=== PATIENT | female | born 1990 | race Caucasian/White ===

== ENCOUNTER 2019-07-13 12:48 | Emergency (ER) | payer OTHER ==
[2019-07-13] MEDS ORDERED: Ondansetron ODT TAB* 4 MG PO ONE (13:22)
[2019-07-13] MEDS ORDERED: Ketorolac INJ* 30 MG/ML 1 ML VIAL IM ONE (13:23)
--- NOTE | 2019-07-13 13:24 | ED ---
GI/ HPI - HPI Summary HPI Summary: 29-year-old female presents with nausea and vomiting today. States that she is having abdominal pain in her lower abd. Always has this pain when she has her period. Has not taking anything for her symptoms. She denies any fevers. She states she's been feeling hot and cold. No chest pain or shortness breath. No cough. Some admits to urinary pressure but no dysuria. No abnormal vaginal discharge. Has no medical conditions. she denies any diarrhea constipation. - History of Current Complaint Chief Complaint: EDNauseaVomitDiarrh Time Seen by Provider: 07/13/19 13:13 Stated Complaint: ABD PAIN PER Pain Intensity: 5 - Allergy/Home Medications Allergies/Adverse Reactions: Allergies Allergy/AdvReac Type Severity Reaction Status Date / Time No Known Allergies Allergy Verified 07/13/19 12:54 PMH/Surg Hx/FS Hx/Imm Hx Endocrine/Hematology History: Denies: Hx Anticoagulant Therapy Respiratory History: Denies: Hx Asthma Infectious Disease History: No Infectious Disease History: Denies: Traveled Outside the [place] in Last 30 Days - Family History Known Family History: Positive: Non-Contributory - Social History Alcohol Use: Rare Substance Use Type: Reports: None Smoking Status (MU): Never Smoked Tobacco Review of Systems Negative: Fever Negative: Chest Pain Negative: Shortness Of Breath Positive: Abdominal Pain, Vomiting, Nausea. Negative: Diarrhea All Other Systems Reviewed And Are Negative: Yes Physical Exam Triage Information Reviewed: Yes Vital Signs On Initial Exam: Initial Vitals Temp Pulse Resp BP Pulse Ox 97.3 F 69 16 95/57 100 07/13/19 12:50 07/13/19 12:50 07/13/19 12:50 07/13/19 12:50 07/13/19 12:50 Vital Signs Reviewed: Yes Appearance: Positive: Well-Appearing Skin: Positive: Warm, Dry Head/Face: Positive: Normal Head/Face Inspection Eyes: Positive: Normal, Conjunctiva Clear ENT: Positive: Pharynx normal Respiratory/Lung Sounds: Positive: Clear to Auscultation, Breath Sounds Present Cardiovascular: Positive: Normal, RRR Abdomen Description: Positive: Nontender, Soft Bowel Sounds: Positive: Present Musculoskeletal: Positive: Normal Neurological: Positive: Normal Psychiatric: Positive: Normal Procedures - Sedation Patient Received Moderate/Deep Sedation with Procedure: No Diagnostics - Vital Signs Vital Signs Temp Pulse Resp BP Pulse Ox 07/13/19 12:50 97.3 F 69 16 95/57 100 - Laboratory Result Diagrams: 07/13/19 13:53 07/13/19 13:49 Lab Statement: Any lab studies that have been ordered have been reviewed, and results considered in the medical decision making process. Re-Evaluation - Re-Evaluation First Eval Re-Evaluation Time: 14:45 Change: Improved Comment: feeling better GIGU Course/Dx - Course Course Of Treatment: 29-year-old female presents with nausea and vomiting today. States that she is having abdominal pain in her lower abd. Always has this pain when she has her period. Has not taking anything for her symptoms. She denies any fevers. She states she's been feeling hot and cold. No chest pain or shortness breath. No cough. Some admits to urinary pressure but no dysuria. No abnormal vaginal discharge. Has no medical conditions. she denies any diarrhea constipation. On exam nontender abdomen. urine likely contaminant. wbc 12. crp normal. gave zofran and feeling better. will discharge with zofran could be viral illness vs due to menses. patient understand and agrees with plan. - Diagnoses Differential Diagnoses - Female: Gastroenteritis (Viral), Vomiting, Other - menses Provider Diagnoses: Vomiting, Abdominal pain Discharge ED - Sign-Out/Discharge Documenting (check all that apply): Patient Departure - Discharge Plan Condition: Good Disposition: HOME Prescriptions: Ondansetron ODT TAB* [Zofran 4 MG Odt TAB*] 4 mg PO Q6H PRN #16 tab.odt PRN Reason: Nausea Patient Education Materials: Acute Nausea and Vomiting (ED) Referrals: [facility] – [place] [facility] [Outside] Additional Instructions: Can take Zofran every 6 hours as needed for nausea Take ibuprofen or Tylenol for pain as needed every 6 hours establish care with primary Follow up with primary within 5 days Return to ED if develop any new or worsening symptoms - Billing Disposition and Condition Condition: GOOD Disposition: Home
[2019-07-13 13:58] LABS: Urine Appearance Cloudy; Urine Bacteria Absent (Absent); Urine Bilirubin Negative (Negative); Urine Blood 2+ (Negative); Urine Color Yellow; Urine Glucose Negative (Negative); Urine Ketones Trace (Negative); Urine Nitrite Negative (Negative); Urine Protein 2+(100 mg/dL) (Negative); Urine Red Blood Cell 3+(>10/hpf) (Absent); Urine Specific Gravity 1.027 (1.010-1.030); Urine Squamous Epithelial Cell Present (Absent); Urine Urobilinogen Negative (Negative); Urine White Blood Cell Trace(0-5/hpf) (Absent)
[2019-07-13 14:07] LABS: ABS Eosinophils 0.1 10^3/ul (0-0.6); ABS Lymphocytes 0.5 10^3/ul (1.0-4.8); ABS Monocytes 0.6 10^3/ul (0-0.8); ABS Neutrophils 11.2 10^3/ul (1.5-7.7); Eosinophil % 0.4 %; Hematocrit 41 % (35-47); Hemoglobin 14.1 g/dL (12.0-16.0); Lymphocyte % 4.4 %; Mean Corpuscular HGB Conc 35 g/dL (31-36); Mean Corpuscular Hemoglobin 30 pg (27-31); Mean Corpuscular Volume 87 fL (80-97); Platelet Count 209 10^3/uL (150-450); Red Blood Count 4.68 10^6 /uL (3.70-4.87); Red Cell Distribution Width 13 % (10-15); White Blood Count 12.4 10^3/uL (3.5-10.8)
[2019-07-13 14:21] LABS: ALT 12 U/L (7-52); AST 15 U/L (13-39); Albumin 4.5 g/dL (3.2-5.2); Albumin/Globulin Ratio 1.7 (1-3); Alkaline Phosphatase 29 U/L (34-104); Anion Gap 6 mmol/L (2-11); BUN/Creatinine Ratio 26.5 (8-20); Blood Urea Nitrogen 18 mg/dL (6-24); C Reactive Protein 2.42 mg/L (<8.01); CO2 Carbon Dioxide 27 mmol/L (22-32); Calcium 8.8 mg/dL (8.6-10.3); Chloride 104 mmol/L (101-111); EGFR African American 125.6 (>60); EGFR Non-African American 103.8 (>60); Globulin 2.7 g/dL (2-4); Glucose 94 mg/dL (70-100); Sodium 137 mmol/L (135-145); Total Protein 7.2 g/dL (6.4-8.9)
[2019-07-13 14:27] LABS: HCG Pregnancy < 0.60 mIU/mL
[2019-07-13 15:15] VITALS: BP 108/66
== END 2019-07-13 14:50 | disposition home or self-care (01) ==
LOC: ED 12:48
DX: R11.10 Vomiting, unspecified (principal); R10.9 Unspecified abdominal pain
CPT/HCPCS: 36415; 80053; 81003; 81015; 83690; 84702; 85025; 86140; 87086; 96372; 99282; A9270-GY; J1885